=== PATIENT | female | born 1945 | race African-American/Black ===

== ENCOUNTER 2019-06-25 14:11 | Emergency (ER) | payer SELFPAY ==
[~2019-06-25] VITALS: Ht 165.1 cm; Wt 95.3 kg
[~2019-06-25 14:11] MED LIST: CALCIUM CHLORIDE 10% 100 MG/ML SYR IVP ONE; EPINEPHrine PFS 0.1 MG/ML SYR IVP ONE; SODIUM BICARBONATE 8.4% PFS 50 MEQ/50 ML SYR IVP ONE
== END 2019-06-25 14:12 | disposition expired ==
LOC: MED 14:11
DX: I46.9 Cardiac arrest, cause unspecified (principal); I10 Essential (primary) hypertension
CPT/HCPCS: 31500; 92950; 99285; J0171